=== PATIENT | male | born 1970 | race Hispanic/Latino ===

== ENCOUNTER 2018-02-10 09:52 | Emergency (ER) | payer OTHER, MEDICARE ==
[2018-02-10 10:20] VITALS: BMI 22.0
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
[2018-02-10 10:29] VITALS: TEMP 98.4
[2018-02-10] MEDS ORDERED: Morphine 4 mg/ml ISec IM STA (10:36)
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
[2018-02-10 12:31] VITALS: BP 132/80; PULSE 85; RESP 17; O2SAT 99
== END 2018-02-10 12:35 | disposition home or self-care (01) ==
LOC: ED 09:52
DX: R07.89 Other chest pain (principal)
CPT/HCPCS: 71250; 96372; 99285; J2270

== ENCOUNTER 2018-02-15 09:55 | Emergency (ER) | payer OTHER, MEDICARE ==
[2018-02-15 10:05] VITALS: BMI 22.7
[2018-02-15 10:49] LABS: BASO # 0.04 K/mm3 (0.0-2.0); BASO % 0.5 % (0.0-3.0); EOS # 0.3 (0.0-0.7); EOS % 3.9 % (1.5-5.0); GRAN # 4.41 (1.4-6.5); GRAN % 57.6 % (50.0-68.0); HEMOGLOBIN 15.2 g/dL (14.0-18.0); LYMPH # 2.3 (1.2-3.4); LYMPH % 30.5 % (22.0-35.0); MEAN CELL VOLUME 91.3 fl (80.0-105.0); MEAN CORPUSCULAR HEMOGLOBIN 32.1 pg (25.0-35.0); MEAN CORPUSCULAR HGB CONC 35.2 g/dl (31.0-37.0); MEAN PLATELET VOLUME 8.8 fl (7.0-11.0); MONO # 0.6 (0.1-0.6); MONO % 7.5 % (1.0-6.0); RBC 4.73 10^6/uL (3.5-6.1); RED CELL DISTRIBUTION WIDTH 14.3 % (11.5-14.5); WHITE BLOOD COUNT 7.7 10^3/ul (4.5-11.0)
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
[2018-02-15 10:58] LABS: ALB/GLOB RATIO 1.4 (1.1-1.8); ALBUMIN 4.1 g/dL (3.0-4.8); ALT/SGPT 24 U/L (7-56); AST/SGOT 24 U/L (17-59); BLOOD UREA NITROGEN 15 mg/dL (7-21); CALCIUM 9.4 mg/dL (8.4-10.5); GFR AFRICAN-AMERICAN > 60; GFR NON-AFRICAN AMERICAN > 60
[2018-02-15 10:59] LABS: INR 0.93 (0.93-1.08); PARTIAL THROMBOPLASTIN TIME 27.9 Seconds (25.1-36.5); PROTHROMBIN TIME 10.7 SECONDS (9.4-12.5)
[2018-02-15 11:09] LABS: TROPONIN I < 0.01 ng/mL
--- NOTE | 2018-02-15 11:13 | RAD ---
Date of service: 02/15/2018 HISTORY: pain COMPARISON: No prior. FINDINGS: LUNGS: No active pulmonary disease. PLEURA: No significant pleural effusion identified, no pneumothorax apparent. CARDIOVASCULAR: Normal. OSSEOUS STRUCTURES: No significant abnormalities. VISUALIZED UPPER ABDOMEN: Normal. OTHER FINDINGS: None. IMPRESSION: No active disease.
[2018-02-15 11:52] LABS: URINE BILIRUBIN NEGATIVE (NEGATIVE); URINE BLOOD NEGATIVE (NEGATIVE); URINE GLUCOSE (UA) NEGATIVE (NEGATIVE); URINE LEUKOCYTE ESTERASE NEGATIVE Leu/uL (NEGATIVE); URINE PROTEIN NEGATIVE mg/dL (<30 mg/dL); URINE UROBILINOGEN 0.2 E.U./dL (<1 E.U./dL)
[2018-02-15 11:53] LABS: BARBITURATES, UR NEGATIVE (NEGATIVE); BENZODIAZEPINES, UR NEGATIVE (NEGATIVE); OPIATES, UR NEGATIVE (NEGATIVE); PHENCYCLIDINE, UR NEGATIVE (NEGATIVE)
[2018-02-15 12:11] VITALS: BP 120/71; PULSE 73; RESP 16; TEMP 98.5; O2SAT 97
[2018-02-15 12:38] LABS: URINE APPEARANCE CLEAR (CLEAR); URINE COLOR YELLOW (YELLOW)
--- NOTE | 2018-02-15 18:00 | CARD ---
APPROVED REPORT Date of service: 02/15/2018 EKG Measurement Heart [id number] <Conclusion> Normal sinus rhythm Incomplete right bundle branch block Borderline ECG
== END 2018-02-15 12:12 | disposition left against medical advice (07) ==
LOC: ED 09:55
DX: R07.9 Chest pain, unspecified (principal); F14.10 Cocaine abuse, uncomplicated; V89.2XXA Person injured in unspecified motor-vehicle accident, traffic, initial encounter; F17.210 Nicotine dependence, cigarettes, uncomplicated
CPT/HCPCS: 71045; 80053; 81003; 82550; 83615; 84484; 85025; 85610; 85730; 93005; 96374; 99284; G0480; J1885